=== PATIENT | female | born 1985 | race American Indian/Alaskan Native ===

== ENCOUNTER 2020-10-13 09:47 | Emergency (ER) | payer SELFPAY ==
[2020-10-13 10:06] VITALS: BP 150/66
[2020-10-13 10:44] LABS: HCG Qualitative,Urine Negative (Negative)
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
[2020-10-13] MEDS ORDERED: IBUPROFEN 600 MG TAB PO ONE (11:17)
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
== END 2020-10-13 13:28 | disposition home or self-care (01) ==
LOC: ED 09:47
DX: S16.1XXA Strain of muscle, fascia and tendon at neck level, initial encounter (principal); M25.511 Pain in right shoulder; Z79.899 Other long term (current) drug therapy; V49.49XA Driver injured in collision with other motor vehicles in traffic accident, initial encounter; Y93.89 Activity, other specified; Y92.488 Other paved roadways as the place of occurrence of the external cause; Y99.8 Other external cause status
CPT/HCPCS: 81025; 99283